=== PATIENT | female | born 1955 | race Caucasian/White ===

== ENCOUNTER 2018-01-25 09:41 | Outpatient (CLI) | payer OTHER ==
--- NOTE | 2018-02-06 11:00 | CONSULTATION REPORT ---
HISTORY OF PRESENT ILLNESS: Pearl Iqbal is a 62-year-old white woman previously a patient of Dr. Jessa Magaña in [place]. She has had 10 years of arthritis described as inflammatory. She has been on Plaquenil. She tried and failed sulfasalazine. She used to tramadol at bedtime. Otherwise, she continues to have pain in her wrists and her fingers as she points to the DIPs but also the elbows, hips, and the knees. Some of the component of her pain is a burning pain and it is associated with morning stiffness lasting 2 to 3 hours. She appreciates some joint swelling around the MCPs and wrists at times. PAST MEDICAL HISTORY: 1. Inflammatory arthritis. 2. Angina. PAST SURGICAL HISTORY: 1. Abdominal hysterectomy. 2. Cholecystectomy. PRESENT MEDICATIONS: 1. Spironolactone. 2. Flexeril. 3. Plaquenil. 4. Carvedilol. 5. Isosorbide mononitrate 6. Diltiazem. ALLERGIES: 1. Gluten. 2. Latex. 3. Zyrtec. 4. Protonix. 5. Codeine. SOCIAL HISTORY: No smoking. No drinking. She is . 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 FAMILY HISTORY: Her maternal aunt has rheumatoid arthritis. Mother and brother have osteoporosis. REVIEW OF SYSTEMS: She has had a 20-pound weight gain. She has fatigue and weakness, ringing in the ears, dry nose, dry mouth, frequent sore throats, chest pain, palpitations, heartburn, swelling of her legs, hair loss, color changes in her hands and feet in the cold, paleness, hands sensitivity, anxiety, and difficulty sleeping. PHYSICAL EXAMINATION: VITAL SIGNS: Pain is 4 over 10 in the hands and feet. T: 97.9, R: 18, BP: 120/70, P: 80. HEENT: Sclerae are anicteric. Conjunctivae are pink. No stomatitis or glossitis. LUNGS: Clear bilaterally with no crackles or wheezing. HEART: Regular rate and rhythm. ABDOMEN: Soft. VASCULAR: No peripheral edema. JOINTS: Hard bony swelling at the DIPs but also some tenderness and fullness at the MCPs and wrists. Left elbow does not fully straighten. Shoulders have good range of motion. Fullness at the knees with tenderness. Ankles and MTPs are unremarkable. IMPRESSION: It certainly looks like the patient has generalized osteoarthritis but there is an inflammatory component to it and one wonders if she does not have seronegative rheumatoid arthritis. She needs a re-evaluation. PLAN: 1. I will order x-rays of her hands, wrists, and feet and labs. 2. Since I will no longer be at this clinic and I do not participate with [employer] and [employer] in my [place] office, I have made arrangements to refer the patient for further care with Dr. Marycarmen Moses. Thank you very much. Best regards, cc: Dr. Margarito FAUSTIN
== END 2018-01-25 09:50 ==
LOC: RHEU 09:41
PROVIDERS: ATTEND Internal Medicine
DX: M13.88 Other specified arthritis, other site (principal); I20.9 Angina pectoris, unspecified
CPT/HCPCS: 99213

== ENCOUNTER 2018-02-01 07:22 | Outpatient (CLI) | payer OTHER ==
[2018-02-01 08:57] LABS: eGFR (Non-African) > 60
[2018-02-01 08:58] LABS: BASOPHILS % 0.5 (0.0-1.5); MONOCYTES % 7.6 % (0.0-11.0)
--- NOTE | 2018-02-02 03:02 | Diagnostic Imaging Report ---
VIRGIN[place] FIORE [facility] [id number] [facility] [address] 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 PAIN IN RT HAND, WORSENING RECENTLY. (Hx) Comparison exams: None available Findings: 3 views of the right hand demonstrates osteopenia. Articular degenerative changes: most pronounced involving the distal interphalangeal joint of the 2nd and 3rd digits. No fracture. No dislocation. Unfused ulna styloid. No gross soft tissue abnormality. Impression: Osteopenia. Moderate to advanced articular degenerative changes. No fracture. Electronically signed on Feb 01, 2018 8:17:05 AM ABIGAIL by: James FAUSTIN
--- NOTE | 2018-02-02 03:03 | Diagnostic Imaging Report ---
VIR[place] FIORE [facility] [address] [facility].[address] [address] Report Submission Date: Feb 01, 2018 8:18:11 AM CERTIFIED PROSTHETIST/ORTHOTIST Patient Study Name: MARINE HINDS Date: Feb 01, 2018 7:36:51 AM CERTIFIED PROSTHETIST/ORTHOTIST Modality Type: DX Gender: F Description: LOWER EXTREMITY : 59 Institution: [facility] Physician: VIRGINIA FIORE Examination: Plain film left foot History: LEFT FOOT, POLYARTHRITIS. PAIN IN LEFT FOOT, WORSENING RECENTLY (Hx) Findings: 3 views of the left foot demonstrates osteopenia. Articular degenerative changes. No fracture or dislocation. Calcaneal spurs. No soft tissue swelling. No joint effusion. Impression: Osteopenia and degenerative changes. No acute cortical abnormality. Electronically signed on Feb 01, 2018 8:18:11 AM CERTIFIED PROSTHETIST/ORTHOTIST by: James FAUSTIN
== END 2018-02-01 08:30 ==
LOC: LAB 07:22
PROVIDERS: ATTEND Internal Medicine
DX: M13.0 Polyarthritis, unspecified (principal); M85.89 Other specified disorders of bone density and structure, multiple sites; M24.141 Other articular cartilage disorders, right hand; M24.175 Other articular cartilage disorders, left foot
CPT/HCPCS: 36415; 73130; 73630; 80053; 85025; 85651; 86038; 86140; 86200; 86431

== ENCOUNTER 2018-08-02 20:58 | Emergency (ER) | payer OTHER ==
[2018-08-02] MEDS ORDERED: 0.9 % SODIUM CHLORIDE 1,000 ML IV ONE ×2 (21:39)
[2018-08-02] MEDS ORDERED: dilTIAZem HCL 30 MG TABLET PO ONE (21:42)
--- NOTE | 2018-08-02 22:24 | ED Physician Documentation ---
Wrist Injury - HISTORIAN Historian: patient - HPI Stated Complaint: right wrist pain Chief Complaint: Wrist Injury Additional Information: Patient presents to ED with complaints of right wrist pain after falling this morning around 0500. Patient states she woke up suddenly at 0500 with diarrhea. She sprang out of bed and ran to the bathroom. Half way to the bathroom she began to get dizzy and the next thing she knew she was on her hands and knees in the bathroom floor. She denies hitting her head but now has right wrist pain. He has a history of printzmetal angina and take cardizem and imdur daily but she did not take it today due to nausea. BP and heart rate is elevated upon presentation. Onset: today Where: home Severity: mild Duration: persistent since Context: fall Location of Injury: R wrist Modifying Factors: pain on movement - ROS CONST: no problems GI/: nausea NEURO: fainting CVS/RESP: denies: chest pain, shortness of breath LNMP: post-menopausal EYES/ENT: none MS/SKIN/LYMPH: denies: calf pain - PAST HX Past History: Rt handed Allergies/Adverse Reactions: Allergies Allergy/AdvReac Type Severity Reaction Status Date / Time gluten Allergy Mild Verified 08/02/18 22:02 cetirizine HCl [From Zyrtec] Allergy Verified 08/02/18 22:02 codeine Allergy Verified 08/02/18 22:02 latex Allergy Verified 08/02/18 22:02 oxycodone Allergy Verified 08/02/18 22:02 pantoprazole sodium Allergy Verified 08/02/18 22:02 [From Protonix] Home Medications: Ambulatory Orders Medication Instructions Recorded Carvedilol [Coreg] 12.5 mg PO DAILY u2 12/18/17 Diltiazem HCl [Diltiazem 24hr Er] 360 mg PO DAILY av 12/18/17 Isosorbide Mononitrate [Isosorbide 60 mg PO 1 q 36hours u2 12/18/17 Mononitrate Er] Montelukast Sodium 10 mg PO DAILY u2 12/18/17 - SOCIAL HX Smoking History: non-smoker Alcohol Use: none Drug Use: none - FAMILY HX Family History: none - REVIEWED ASSESSMENTS Nursing Assessment Reviewed: Yes Vitals Reviewed: Yes Wrist Physical Exam - Physical Exam General Appearance: no acute distress, alert Hand: nml inspection, non-tender Wrist: swelling, tenderness (ulnar lateral side) Neuro: sensation nml, motor nml Vascular: no vascular compromise Tendon: tendon function nml Forearm/Elbow/Arm: uninjured above wrist Skin: warm/dry Head/ENT: nml inspection Neck/Back: nml inspection Resp/CVS: chest non-tender, breath sounds nml, tachycardia Abdomen: non-tender ED Results Lab/Radiology - Orders Orders: ED Orders Category Date Time Status Place IV Lock 1T Care 08/02/18 21:37 Active WRIST 3 VIEWS OR MORE [RAD] Stat Exams 08/02/18 Ordered CBC/PLATELET/DIFF Routine Lab 08/02/18 Received CMP Routine Lab 08/02/18 Received NTBNP Stat Lab 08/02/18 Received TROPONIN I Stat Lab 08/02/18 Received 0.9 % Sodium Chloride [Normal Saline] 1,000 ml Med 08/02/18 21:39 Discontinued IV .STK-MED dilTIAZem HCL [Cardizem] Med 08/02/18 21:42 Discontinued 60 mg PO NOW ONE Discharge Clincal Impression: Sprain of wrist, right Qualifiers: Encounter type: initial encounter Qualified Code(s): S63.501A - Unspecified sprain of right wrist, initial encounter Referrals: Esperanza Sanchez NP [Primary Care Provider] - 2 Days Additional Instructions: 1. Restart Cardizem and Imdur tomorrow before noon 2. Apply ice to affected area as needed for comfort. Tylenol as needed for pain 3. Wear wrist brace with activity 4. Follow up with PCP within 1 week 5. Return to ER for new or worsening symptoms Condition: Stable Disposition: 01 HOME, SELF-CARE Decision to Admit: NO Date of Decison to Admit: 08/02/18 Decision Time: 22:27
[2018-08-02 23:18] VITALS: BP 131/71
--- NOTE | 2018-08-02 23:34 | Diagnostic Imaging Report ---
DENILSON ESCOTO [facility] [address] [facility].[address] [address] Report Submission Date: Aug 02, 2018 10:07:19 PM CDT Patient Study Name: MARINE HINDS Date: Aug 02, 2018 9:42:58 PM CDT Modality Type: DX Gender: F Description: WRIST 3 VIEWS : 59 Institution: [facility] Physician: DENILSON ESCOTO Right wrist three views History: Pain after fall Findings: An old ulnar styloid ossicle is present. There is no evidence of acute fracture, dislocation, arthropathy, or focal bone lesion. Electronically signed on Aug 02, 2018 10:07:19 PM CDT by: Josh FAUSTIN
[2018-08-03 07:22] LABS: BASOPHILS % 0.5 % (0.0-1.5)
[2018-08-03 07:23] LABS: eGFR (Non-African) > 60
== END 2018-08-02 23:00 | disposition home or self-care (01) ==
LOC: ED 20:58
DX: S63.501A Unspecified sprain of right wrist, initial encounter (principal); W01.0XXA Fall on same level from slipping, tripping and stumbling without subsequent striking against object, initial encounter; Y92.002 Bathroom of unspecified non-institutional (private) residence as the place of occurrence of the external cause
CPT/HCPCS: 73110; 80053; 83880; 84484; 85025; 96360; 96372; 99283; 99284; J7030; S1016